=== PATIENT | male | born 1955 | race Caucasian/White ===

== ENCOUNTER 2023-01-24 08:24 | Inpatient (IN) | payer OTHER ==
[2023-01-24 09:08] VITALS: BMI 23.7
[2023-01-24] MEDS ORDERED: SODIUM CHLORIDE 1,000 ML IV SCH (09:30)
[2023-01-24 09:47] LABS: BASO % 0.3 % (0-2.0); EOS % 0.3 % (0-4.5); HEMATOCRIT 37.6 % (35.4-49); LYMPH % 8.2 % (8-40); MCH 29.5 pg (25.7-33.7); MCHC 34.5 g/dl (32.0-35.9); MEAN CELL VOLUME 85.6 fl (80-96); MEAN PLT VOLUME 8.2 fl (7.5-11.1); MONO % 12.9 % (3.8-10.2); NEUT % 78.3 % (42.8-82.8); PLATELET COUNT 201 10^3/uL (134-434); RBC 4.39 M/mm3 (4.00-5.60); RDW 14.2 % (11.9-15.9); WHITE BLOOD COUNT 10.2 K/mm3 (4.0-10.0)
[2023-01-24 09:54] LABS: INR 1.1 (0.83-1.09); PROTHROMBIN TIME (PATIENT) 12.7 SEC (9.7-13.0)
[2023-01-24 09:57] LABS: ACTIVATED PTT 28.6 SECONDS (25.2-36.5)
[2023-01-24 10:23] LABS: POTASSIUM 4.4 mmol/L (3.5-5.1)
[2023-01-24 10:25] LABS: ALBUMIN 3.3 g/dl (3.4-5.0); CALCIUM 7.8 mg/dL (8.5-10.1)
[2023-01-24 10:28] LABS: BLOOD UREA NITROGEN 21.8 mg/dL (7-18)
[2023-01-24 10:29] LABS: CREATININE 1.2 mg/dL (0.55-1.3)
[2023-01-24 10:30] LABS: TOT PROT 6.4 g/dl (6.4-8.2)
[2023-01-24 10:33] LABS: BILIRUBIN,TOTAL 0.7 mg/dL (0.2-1)
[2023-01-24] MEDS ORDERED: AZITHROMYCIN 250 MG TABLET PO ONE (11:01)
[2023-01-24] MEDS ORDERED: AZITHROMYCIN 500 MG TABLET ONE (11:43)
[2023-01-24] MEDS ORDERED: CEFTRIAXONE 1 GM/50 ML BAG ONE (11:43)
[2023-01-24] MEDS ORDERED: DEXAMETHASONE SOD PHOSPHATE 10 MG/1 ML VIAL IVPUSH ONE (12:07)
[2023-01-24] MEDS ORDERED: REMDESIVIR 200 MG in SODIUM CHLORIDE 250 ML IVPB ONE (12:33)
[2023-01-24] MEDS ORDERED: DEXAMETHASONE SOD PHOSPHATE 10 MG/1 ML VIAL ONE (13:04)
[2023-01-24] MEDS ORDERED: ACETAMINOPHEN 325 MG TABLET (FP) PO PRN (17:37)
[2023-01-24 17:45] LABS: PH,URINE 5.5 (5.0-8.0); URINE APPEARANCE CLEAR; URINE BILIRUBIN NEGATIVE (NEGATIVE); URINE COLOR YELLOW; URINE GLUCOSE (UA) NEGATIVE (NEGATIVE); URINE KETONE NEGATIVE (NEGATIVE); URINE LEUK ESTERASE NEGATIVE (NEGATIVE); URINE NITRITE NEGATIVE (NEGATIVE); URINE PROTEIN NEGATIVE (NEGATIVE); URINE UROBILINOGEN 0.2 mg/dL (0.2-1.0)
[2023-01-24] MEDS ORDERED: SODIUM CHLORIDE 0.45% 1,000 ML IV SCH (17:45)
[2023-01-25 08:50] LABS: POTASSIUM 4.8 mmol/L (3.5-5.1)
[2023-01-25 09:00] LABS: ALBUMIN 3.5 g/dl (3.4-5.0); BLOOD UREA NITROGEN 25.4 mg/dL (7-18)
[2023-01-25 09:02] LABS: CALCIUM 8.3 mg/dL (8.5-10.1)
[2023-01-25 09:03] LABS: CREATININE 1.1 mg/dL (0.55-1.3)
[2023-01-25 09:04] LABS: BILIRUBIN,TOTAL 0.6 mg/dL (0.2-1); TOT PROT 6.8 g/dl (6.4-8.2)
[2023-01-25 09:12] LABS: BASO % 0.2 % (0-2.0); HEMATOCRIT 40.3 % (35.4-49); HEMOGLOBIN 14.1 GM/dL (11.7-16.9); LYMPH % 8.3 % (8-40); MCH 30.1 pg (25.7-33.7); MEAN CELL VOLUME 85.9 fl (80-96); MEAN PLT VOLUME 8.3 fl (7.5-11.1); MONO % 7.2 % (3.8-10.2); NEUT % 84.3 % (42.8-82.8); PLATELET COUNT 255 10^3/uL (134-434); RBC 4.69 M/mm3 (4.00-5.60); RDW 14.5 % (11.9-15.9); WHITE BLOOD COUNT 9.8 K/mm3 (4.0-10.0)
[2023-01-25] MEDS: CEFTRIAXONE 1 GM in DEXTROSE 5%-WATER - 50 ML IVPB SCH (09:41)
[2023-01-25] MEDS: DEXAMETHASONE SOD PHOSPHATE 10 MG/1 ML VIAL IVPUSH SCH (09:42)
[2023-01-25] MEDS: ENOXAPARIN NA (PORCINE) 40 MG/0.4 ML DISP.SYRIN SQ SCH (09:51)
[2023-01-25 09:57] LABS: ERYTHROCYTE SEDIMENTATION RATE 23 mm/hr (0-20)
[2023-01-25] MEDS: REMDESIVIR 100 MG in SODIUM CHLORIDE 250 ML IVPB SCH (11:17)
[2023-01-25] MEDS: amLODIPine BESYLATE 5 MG TABLET (FP) PO SCH (13:07)
[2023-01-25] MEDS ORDERED: PNEUMOC 20-VAL CONJ-DIP CRM/PF 0.5 ML SYRINGE IM ONE (18:40)
[2023-01-25] MEDS ORDERED: CARVEDILOL 12.5 MG TABLET (FP) PO SCH (21:00)
[2023-01-25] MEDS: ATORVASTATIN CA 80 MG TABLET (FP) PO SCH (22:56)
[2023-01-25] MEDS: CARVEDILOL 12.5 MG TABLET (FP) PO SCH ×2 (22:57→23:00)
[2023-01-26] MEDS: CEFTRIAXONE 1 GM in DEXTROSE 5%-WATER - 50 ML IVPB SCH (08:58)
[2023-01-26 09:09] LABS: BASO % 0.3 % (0-2.0); HEMATOCRIT 42.7 % (35.4-49); HEMOGLOBIN 14.5 GM/dL (11.7-16.9); LYMPH % 11.2 % (8-40); MCH 29.4 pg (25.7-33.7); MCHC 33.8 g/dl (32.0-35.9); MEAN CELL VOLUME 86.8 fl (80-96); MEAN PLT VOLUME 8.2 fl (7.5-11.1); MONO % 5.4 % (3.8-10.2); NEUT % 83.1 % (42.8-82.8); PLATELET COUNT 258 10^3/uL (134-434); RBC 4.92 M/mm3 (4.00-5.60); RDW 14.2 % (11.9-15.9); WHITE BLOOD COUNT 14.5 K/mm3 (4.0-10.0)
[2023-01-26 09:35] LABS: POTASSIUM 4.5 mmol/L (3.5-5.1)
[2023-01-26 09:38] LABS: CALCIUM 8.7 mg/dL (8.5-10.1)
[2023-01-26 09:39] LABS: ALBUMIN 3.5 g/dl (3.4-5.0)
[2023-01-26] MEDS ORDERED: SPIRONOLACTONE 25 MG TABLET PO SCH (10:00)
[2023-01-26] MEDS: REMDESIVIR 100 MG in SODIUM CHLORIDE 250 ML IVPB SCH (10:02)
[2023-01-26] MEDS: AZITHROMYCIN 250 MG TABLET PO SCH (10:02)
[2023-01-26] MEDS: ASPIRIN 81 MG CHEWABLE TABLETS PO SCH (10:03)
[2023-01-26] MEDS: SPIRONOLACTONE 25 MG TABLET PO SCH (10:03)
[2023-01-26] MEDS: DEXAMETHASONE SOD PHOSPHATE 10 MG/1 ML VIAL IVPUSH SCH (10:03)
[2023-01-26] MEDS: ENOXAPARIN NA (PORCINE) 40 MG/0.4 ML DISP.SYRIN SQ SCH (10:03)
[2023-01-26] MEDS: amLODIPine BESYLATE 5 MG TABLET (FP) PO SCH (10:04)
[2023-01-26] MEDS: CARVEDILOL 12.5 MG TABLET (FP) PO SCH (10:04)
[2023-01-26 10:08] LABS: ERYTHROCYTE SEDIMENTATION RATE 13 mm/hr (0-20)
[2023-01-26] MEDS: ATORVASTATIN CA 80 MG TABLET (FP) PO SCH (22:41)
[2023-01-27] MEDS: CEFTRIAXONE 1 GM in DEXTROSE 5%-WATER - 50 ML IVPB SCH (08:53)
[2023-01-27 09:59] LABS: HEMOGLOBIN 13.4 GM/dL (11.7-16.9); MCH 29.3 pg (25.7-33.7); MCHC 34.2 g/dl (32.0-35.9); MEAN CELL VOLUME 85.6 fl (80-96); PLATELET COUNT 256 10^3/uL (134-434); RBC 4.56 M/mm3 (4.00-5.60); RDW 13.9 % (11.9-15.9); WHITE BLOOD COUNT 11.7 K/mm3 (4.0-10.0)
[2023-01-27] MEDS: CARVEDILOL 12.5 MG TABLET (FP) PO SCH ×2 (10:00→22:40)
[2023-01-27 10:12] LABS: POTASSIUM 3.9 mmol/L (3.5-5.1)
[2023-01-27 10:16] LABS: ALBUMIN 3.2 g/dl (3.4-5.0); BLOOD UREA NITROGEN 27.6 mg/dL (7-18); CALCIUM 8.4 mg/dL (8.5-10.1)
[2023-01-27 10:21] LABS: BILIRUBIN,TOTAL 0.4 mg/dL (0.2-1); TOT PROT 6.3 g/dl (6.4-8.2)
[2023-01-27] MEDS: REMDESIVIR 100 MG in SODIUM CHLORIDE 250 ML IVPB SCH (10:36)
[2023-01-27] MEDS: ENOXAPARIN NA (PORCINE) 40 MG/0.4 ML DISP.SYRIN SQ SCH (10:37)
[2023-01-27] MEDS: ASPIRIN 81 MG CHEWABLE TABLETS PO SCH (10:37)
[2023-01-27] MEDS: AZITHROMYCIN 250 MG TABLET PO SCH (10:37)
[2023-01-27] MEDS: amLODIPine BESYLATE 5 MG TABLET (FP) PO SCH (10:37)
[2023-01-27] MEDS: DEXAMETHASONE SOD PHOSPHATE 10 MG/1 ML VIAL IVPUSH SCH (10:37)
[2023-01-27] MEDS: SPIRONOLACTONE 25 MG TABLET PO SCH (10:37)
[2023-01-27] MEDS: ATORVASTATIN CA 80 MG TABLET (FP) PO SCH (22:39)
[2023-01-28] MEDS: CEFTRIAXONE 1 GM in DEXTROSE 5%-WATER - 50 ML IVPB SCH (09:00)
[2023-01-28] MEDS: REMDESIVIR 100 MG in SODIUM CHLORIDE 250 ML IVPB SCH (09:37)
[2023-01-28 09:44] VITALS: BP 143/77; PULSE 57; RESP 16; TEMP 97.5
[2023-01-28 09:50] LABS: BASO % 0.2 % (0-2.0); HEMATOCRIT 40.7 % (35.4-49); LYMPH % 17.8 % (8-40); MCH 29.3 pg (25.7-33.7); MCHC 34.4 g/dl (32.0-35.9); MEAN CELL VOLUME 85.4 fl (80-96); MEAN PLT VOLUME 8.3 fl (7.5-11.1); MONO % 4.6 % (3.8-10.2); NEUT % 77.4 % (42.8-82.8); PLATELET COUNT 270 10^3/uL (134-434); RBC 4.76 M/mm3 (4.00-5.60); RDW 14.2 % (11.9-15.9)
[2023-01-28] MEDS ORDERED: DEXAMETHASONE 4 MG TABLET (FP) PO SCH (10:00)
[2023-01-28 10:18] LABS: ALBUMIN 3.2 g/dl (3.4-5.0); BLOOD UREA NITROGEN 24.6 mg/dL (7-18); CALCIUM 8.9 mg/dL (8.5-10.1)
[2023-01-28 10:21] LABS: CREATININE 1.1 mg/dL (0.55-1.3)
[2023-01-28 10:23] LABS: BILIRUBIN,TOTAL 0.4 mg/dL (0.2-1); TOT PROT 6.4 g/dl (6.4-8.2)
[2023-01-28] MEDS: ENOXAPARIN NA (PORCINE) 40 MG/0.4 ML DISP.SYRIN SQ SCH (10:32)
[2023-01-28] MEDS: ASPIRIN 81 MG CHEWABLE TABLETS PO SCH (10:33)
[2023-01-28] MEDS: amLODIPine BESYLATE 5 MG TABLET (FP) PO SCH (10:33)
[2023-01-28] MEDS: SPIRONOLACTONE 25 MG TABLET PO SCH (10:33)
[2023-01-28] MEDS: AZITHROMYCIN 250 MG TABLET PO SCH (10:33)
[2023-01-28] MEDS: CARVEDILOL 12.5 MG TABLET (FP) PO SCH ×2 (10:34)
[2023-01-28 13:07] LABS: MYCOPLASMA PNEUMONIAE,IG G AB 1050 U/mL (0-99); MYCOPLASMA PNEUMONIAE,IGM AB 2098 U/mL (0-769)
== END 2023-01-28 13:56 | disposition home or self-care (01) | DRG 177 ==
LOC: JER 08:24 → JERBED 12:39 → J7W 01-25 02:31
PROVIDERS: ADMIT Internal Medicine; ATTEND Nurse Practitioner Family
PROC: XW033E5 Introduction of Remdesivir Anti-infective into Peripheral Vein, Percutaneous Approach, New Technology Group 5 (ICD-10-PCS; principal; 2023-01-24)
PROC: 3E0333Z Introduction of Anti-inflammatory into Peripheral Vein, Percutaneous Approach (ICD-10-PCS; 2023-01-24)
DX: U07.1 COVID-19 (principal); J12.82 Pneumonia due to coronavirus disease 2019; J96.01 Acute respiratory failure with hypoxia; I25.10 Atherosclerotic heart disease of native coronary artery without angina pectoris; I10 Essential (primary) hypertension; E78.5 Hyperlipidemia, unspecified; E86.0 Dehydration; Z95.5 Presence of coronary angioplasty implant and graft; R55 Syncope and collapse
CPT/HCPCS: 0241U-QW; 36415; 70450-TC; 71045-TC-FY; 80053; 80061; 81003; 82550; 82553; 82962; 83036; 83615; 83735; 84484; 85025; 85027; 85610; 85651; 85730; 86140; 86738; 86850; 86900; 86901; 87899; 90677; 93005; 93010; 94010; 99285-25; C9399; J1100